=== PATIENT | male | born 1970 | race Two or more races ===

== ENCOUNTER 2019-12-21 11:37 | Emergency (ER) | payer BC, SELFPAY ==
--- NOTE | 2019-12-21 11:33 | ECG_ITS ---
APPROVED REPORT Exam: Resting ECG HR:91 bpm ECG Measurements Heart Rate 91 AXES VA 152 P 72 QRSd 86 QRS 91 QT 382 T 58 QTc 469 <Conclusion> Normal sinus rhythm Rightward axis Borderline ECG Electronically signed by : Gio Harvey, 12/26/2019 13:09:09
[2019-12-21 11:39] VITALS: BP 167/97; PULSE 94; RESP 18; TEMP 36.4; O2SAT 98; BMI 25.7
--- NOTE | 2019-12-21 11:44 | XR_ITS ---
PROCEDURE: XR CHEST 2V CLINICAL HISTORY: chest pain COMPARISON: No exams were available for comparison FINDINGS: The cardiomediastinal silhouette and pulmonary vascularity are within normal limits. The lungs are clear without infiltrates, suspicious nodules, or pleural effusions. No acute bony abnormalities. IMPRESSION: No acute findings. Dictated by: Dr. Hernesto Bonner MD 12/21/2019 13:11 Dr. Hernesto Bonner MD in [place] 12/21/2019 13:11
[2019-12-21 11:53] LABS: Basophils % 0.4 % (0.1-2.0); Eosinophils # 0.1 K/mm3 (0.0-0.4); Eosinophils % 2.2 % (0.1-12.0); Hematocrit 45.4 % (42.0-52.0); Hemoglobin 16.1 g/dL (14.1-18.0); Lymphocytes # 1.6 K/mm3 (0.7-4.5); Lymphocytes % 29.8 % (10-50); Mean Corpuscular HGB Conc 35.5 g/dL (31.8-35.4); Mean Corpuscular Hemoglobin 30.3 pg (27.0-31.2); Mean Corpuscular Volume 85.4 fl (80-94); Mean Platelet Volume 7.3 fl (7.4-10.4); Monocytes # 0.3 K/mm3 (0.1-1.0); Monocytes % 5.3 % (1.7-9.3); Neutrophils # 3.3 K/mm3 (1.8-7.8); Neutrophils % 62.3 % (37.0-80.0); Platelet Count 242 K/mm3 (142-424); Red Blood Count 5.31 M/mm3 (4.60-6.20); Red Cell Distribution Width 13.4 % (11.5-17.5); White Blood Count 5.3 K/mm3 (4.8-10.8)
--- NOTE | 2019-12-21 11:54 | PC.NURSE ---
notified Rad of xray order, spoke with ivett
--- NOTE | 2019-12-21 11:55 | [facility].EDCP ---
ED Disposition Clinical Impression: Anxiety Chest pain Qualifiers: Chest pain type: unspecified Qualified Code(s): R07.9 - Chest pain, unspecified Disposition: Home, Self-Care Condition on Discharge: Good Instructions: DI for Atypical Chest Pain, DI for Anxiety -- Adult Referrals: PCPBrittani [Primary Care Provider] - 12/22/19 - Critical Care Critical Care Time: No Attestation: On , the high probability of a clinically significant, sudden or life threatening deterioration of the following system(s) required my full and direct attention, intervention and personal management. The time I documented below is in addition to time spent performing reported procedures but includes the following listed in this critical care notation. Medical Decision Making - Medical Records Medical records reviewed: Yes: I reviewed the patient's medical records. - Uche Inquiry Pt receiving controlled substance: No Vital Signs: 12/21/19 11:39 Temperature 97.5 F L Temperature Source Oral Pulse Rate [Right Radial] 94 H Respiratory Rate 18 Blood Pressure [Right Arm] 167/97 H Blood Pressure Mean [Right Arm] 120 Blood Pressure Source [Right Arm] Automatic Cuff Blood Pressure Position [Right Arm] Sitting 02 Sat by Pulse Oximetry 98 Oxygen Delivery Method Room Air - Lab Data Lab results reviewed: Yes: I reviewed the patient's lab results. Lab Results 12/21/19 11:40: WBC 5.3, RBC 5.31, Hgb 16.1, Hct 45.4, MCV 85.4, MCH 30.3, MCHC 35.5 H, RDW 13.4, Plt Count 242, MPV 7.3 L, Neut % (Auto) 62.3, Lymph % (Auto) 29.8, Pender % (Auto) 5.3, Eos % (Auto) 2.2, Baso % (Auto) 0.4, Neut # (Auto) 3.3, Lymph # (Auto) 1.6, Pender # (Auto) 0.3, Eos # (Auto) 0.1, Baso # (Auto) 0.0 12/21/19 11:40: Sodium 139, Potassium 3.3 L, Chloride 101, Carbon Dioxide 28, Anion Gap 13.3, BUN 16, Creatinine 1.10, Estimated Creat Clear 107, Estimated GFR 72, Est GFR ( Amer) 87, Glucose 106 H, Calcium 9.1, Total Bilirubin 0.8, AST 31, ALT 37, Alkaline Phosphatase 68, Troponin I < 0.01, Total Protein 7.5, Albumin 4.4, Globulin 3.1, Albumin/Globulin Ratio 1.4 12/21/19 11:40: Lipase 95 Result diagrams: 12/21/19 11:40 12/21/19 11:40 Orders (Tests/Meds): ED MEDICATIONS Generic Name Dose Route Start Last Admin Trade Name Freq PRN Reason Stop Dose Admin Nitroglycerin 0.4 mg 12/21/19 11:44 Nitrostat 0.4mg Sl Tablet SL 12/22/19 11:44 [id number] PRN Chest Pain Discontinued Medications Generic Name Dose Route Start Last Admin Trade Name Freq PRN Reason Stop Dose Admin Aspirin 324 mg 12/21/19 11:44 12/21/19 11:55 Aspirin 81mg Chewable Tablet PO 12/21/19 11:45 324 mg ONCE ONE Administration ORDERS Category Date Time Status XR chest 2V Stat Exams 12/21/19 11:44 Taken Troponin I Q3H Lab 12/21/19 14:45 Ordered Troponin I Q3H Lab 12/21/19 17:45 Ordered ECG Request by /Seth Stat Y 12/21/19 11:44 Ordered - Radiology Data #1 Image(s): Chest Image Reviewed: Yes I reviewed the patient's radiology results Preliminary Findings: Normal/NAD - ECG Data Tracing #1 EKG shows normal sinus rhythm with a rate of 91. Performed at 1133. There is no acute ST segment elevation or depression. No hyperacute T waves. Normal intervals. EKG interpreted by me. - LUANA Score for Non-Stemi Age of Patient: 40-49 years old Heart Rate: 90-109 bpm Systolic Blood Pressure: 160-199 mmHg Serum Creatinine: 0.80-1.19 mg/dl CHF Killip Class: I-No CHF Other Risk Factors: None Non-Stemi Risk Score: 57 Medical Decision Narrative: Patient here with several weeks of intermittent chest pain associated with anxiety. Troponin negative, EKG with no signs of acute ischemia. Low patient for ACS. HEART score less than 3. Chest x-ray with no signs of pneumonia, pneumothorax, widened mediastinum or florid pulmonary edema. PERC negative. He is follow-up with his primary care provider tomorrow for reevaluation. Discharged home. Chest Pain H
[2019-12-21 11:58] LABS: Chloride 101 mmol/L (98-107)
[2019-12-21 11:59] LABS: Potassium 3.3 mmoL/L (3.5-5.1); Sodium 139 mmol/L (136-145)
[2019-12-21 12:01] LABS: Alanine Aminotransferase 37 U/L (12-78); Aspartate Amino Transferase 31 U/L (17-59); Bilirubin,Total 0.8 mg/dl (0.2-1.3); Blood Urea Nitrogen 16 mg/dl (9-20); Creatinine Clearance Estimated 107 mL/min (50-200); Estimated Glomerular Filt Rate 72 ml/min (>60); GFR (African American) 87 ML/MIN (>60); Lipase 95 U/L (23-300)
[2019-12-21 12:02] LABS: Albumin Level 4.4 g/dl (3.5-5.0); Albumin/Globulin Ratio 1.4 (1.1-1.8); Alkaline Phosphatase 68 U/L (38-126); Anion Gap 13.3 mEq/L (5-15); Calcium 9.1 mg/dl (8.4-10.2); Carbon Dioxide 28 mmol/L (22.0-30.0); Globulin 3.1 g/dL (1.3-3.2); Glucose 106 mg/dl (74-100); Total Protein,Serum 7.5 g/dl (6.3-8.2)
--- NOTE | 2019-12-21 12:06 | PC.NURSE ---
pt to xray
[2019-12-21 12:14] LABS: Troponin I < 0.01 ng/ml (0.00-0.034)
[2019-12-21 12:39] VITALS: BP 141/85; PULSE 84; O2SAT 98
[2019-12-21 13:03] VITALS: BP 141/85; PULSE 84; RESP 18; TEMP 36.4; O2SAT 98
== END 2019-12-21 13:05 | disposition home or self-care (01) ==
PROVIDERS: Emergency Provider Emergency Medicine; PCP Internal Medicine
DX: R07.9 Chest pain, unspecified (principal); F41.9 Anxiety disorder, unspecified
CPT/HCPCS: 71046; 80053; 83690; 84484; 85025; 93005; 99284

== ENCOUNTER 2020-01-04 10:05 | Emergency (ER) | payer BC, SELFPAY ==
--- NOTE | 2020-01-04 10:00 | ECG_ITS ---
APPROVED REPORT Exam: Resting ECG HR:71 bpm ECG Measurements Heart Rate 71 AXES GA 160 P 62 QRSd 90 QRS 88 QT 404 T 55 QTc 439 <Conclusion> Normal sinus rhythm Normal ECG Electronically signed by : Gio Harvey, 01/06/2020 15:01:14
[2020-01-04 10:10] VITALS: BP 137/91; PULSE 72; RESP 16; TEMP 37.1; O2SAT 97; BMI 26.9
--- NOTE | 2020-01-04 10:11 | XR_ITS ---
PROCEDURE: XR CHEST 2V CLINICAL HISTORY: chest pain COMPARISON: CR XR CHEST 2V from 12/21/2019 FINDINGS: The cardiomediastinal silhouette and pulmonary vascularity are within normal limits. The lungs are clear without infiltrates, suspicious nodules, or pleural effusions. No acute bony abnormalities. IMPRESSION: No acute findings. Dictated by: Dr. Hernesto Bonner MD 01/04/2020 10:40 Dr. Hernesto Bonner MD in [place] 01/04/2020 10:40
--- NOTE | 2020-01-04 10:12 | [facility].EDCP ---
ED Disposition Clinical Impression: Atypical chest pain, Anxiety Disposition: Home, Self-Care Condition on Discharge: Good Instructions: DI for Atypical Chest Pain Referrals: Fermin Meyers PA [Physician Item Processor] - 7-14 days - Critical Care Critical Care Time: No Attestation: On 01/04/20, the high probability of a clinically significant, sudden or life threatening deterioration of the following system(s) required my full and direct attention, intervention and personal management. The time I documented below is in addition to time spent performing reported procedures but includes the following listed in this critical care notation. Medical Decision Making - Medical Records Medical records reviewed: Yes: I reviewed the patient's medical records. - [place] Inquiry Pt receiving controlled substance: No Vital Signs: 01/04/20 10:10 01/04/20 10:30 Temperature 98.8 F Temperature Source Oral Pulse Rate [Right Brachial] 72 66 Respiratory Rate 16 Blood Pressure [Right Arm] 137/91 H 128/82 Blood Pressure Mean [Right Arm] 106 97 Blood Pressure Source [Right Arm] Automatic Cuff Automatic Cuff Blood Pressure Position [Right Arm] Supine Sitting 02 Sat by Pulse Oximetry 97 98 Oxygen Delivery Method Room Air Room Air - Lab Data Lab Results 01/04/20 10:00: WBC 6.1, RBC 5.32, Hgb 15.9, Hct 45.0, MCV 84.5, MCH 29.9, MCHC 35.4, RDW 13.6, Plt Count 242, MPV 7.4, Neut % (Auto) 67.1, Lymph % (Auto) 26.1, Gonzales % (Auto) 4.5, Eos % (Auto) 1.8, Baso % (Auto) 0.5, Neut # (Auto) 4.1, Lymph # (Auto) 1.6, Gonzales # (Auto) 0.3, Eos # (Auto) 0.1, Baso # (Auto) 0.0 01/04/20 10:00: Sodium 140, Potassium 3.6, Chloride 101, Carbon Dioxide 31 H, Anion Gap 11.6, BUN 16, Creatinine 1.10, Estimated Creat Clear 112, Estimated GFR 72, Est GFR ( Amer) 87, Glucose 88, Calcium 9.3, Total Bilirubin 0.9, AST 32, ALT 33, Alkaline Phosphatase 58, Troponin I < 0.01, Total Protein 7.5, Albumin 4.4, Globulin 3.1, Albumin/Globulin Ratio 1.4, Lipase 134 Result diagrams: 01/04/20 10:00 01/04/20 10:00 Orders (Tests/Meds): ORDERS Category Date Time Status Troponin I Q3H Lab 01/04/20 13:15 Ordered Troponin I Q3H Lab 01/04/20 16:15 Ordered - Radiology Data #1 Image(s): Chest Image Reviewed: Yes I reviewed the patient's radiology results Preliminary Findings: Normal/NAD - ECG Data Tracing #1 EKG performed at 1000 shows normal sinus rhythm with a rate of 71. No acute ST segment elevation or depression. No hyperacute T waves. Normal intervals. EKG interpreted by me. Additional Comments: Patient here with chest pain that he has had for at least a month every morning and an episode of sweating, diaphoresis that occurred while in a meeting today. This has happened to him before and he has been told that he has anxiety. He does not currently have any chest pain. His chest pain this morning was typical for him as it has been over the last month since he has been more concerned about it. Patient states that he has been taking his medications as prescribed and has follow-up with cardiology next week. I was able to speak with cardiology and confirmed that a single troponin would be appropriate given his longstanding history of similar symptoms and they agreed. His troponin here is negative and his EKG shows no signs of acute ischemia. Chest x-ray with no signs of pneumonia, pneumothorax or florid pulmonary edema. Advise follow-up next week with cardiology as planned and return for any worsening or change in symptomology. Chest Pain HPI - General Stated Complaint: chest pain Time Seen by Provider: 01/04/20 10:12 Mode of Arrival: Ambulatory Source of Information: Patient Limitations: No Limitations - History of Present Illness HPI narrative: This is a 49-year-old male with a past medical history significant for anxiety, hypertension, hyperlipidemia who presents to the emergency department for evaluation of anterior chest shante
[2020-01-04 10:21] LABS: Basophils % 0.5 % (0.1-2.0); Eosinophils # 0.1 K/mm3 (0.0-0.4); Eosinophils % 1.8 % (0.1-12.0); Hemoglobin 15.9 g/dL (14.1-18.0); Lymphocytes # 1.6 K/mm3 (0.7-4.5); Lymphocytes % 26.1 % (10-50); Mean Corpuscular HGB Conc 35.4 g/dL (31.8-35.4); Mean Corpuscular Hemoglobin 29.9 pg (27.0-31.2); Mean Corpuscular Volume 84.5 fl (80-94); Mean Platelet Volume 7.4 fl (7.4-10.4); Monocytes # 0.3 K/mm3 (0.1-1.0); Monocytes % 4.5 % (1.7-9.3); Neutrophils # 4.1 K/mm3 (1.8-7.8); Neutrophils % 67.1 % (37.0-80.0); Platelet Count 242 K/mm3 (142-424); Red Blood Count 5.32 M/mm3 (4.60-6.20); Red Cell Distribution Width 13.6 % (11.5-17.5); White Blood Count 6.1 K/mm3 (4.8-10.8)
--- NOTE | 2020-01-04 10:22 | PC.NURSE ---
Pt to rad at this time.
[2020-01-04 10:24] LABS: Chloride 101 mmol/L (98-107); Potassium 3.6 mmoL/L (3.5-5.1); Sodium 140 mmol/L (136-145)
[2020-01-04 10:27] LABS: Alanine Aminotransferase 33 U/L (12-78); Alkaline Phosphatase 58 U/L (38-126); Anion Gap 11.6 mEq/L (5-15); Aspartate Amino Transferase 32 U/L (17-59); Bilirubin,Total 0.9 mg/dl (0.2-1.3); Blood Urea Nitrogen 16 mg/dl (9-20); Calcium 9.3 mg/dl (8.4-10.2); Carbon Dioxide 31 mmol/L (22.0-30.0); Creatinine Clearance Estimated 112 mL/min (50-200); Estimated Glomerular Filt Rate 72 ml/min (>60); GFR (African American) 87 ML/MIN (>60); Glucose 88 mg/dl (74-100); Lipase 134 U/L (23-300)
[2020-01-04 10:28] LABS: Albumin Level 4.4 g/dl (3.5-5.0); Albumin/Globulin Ratio 1.4 (1.1-1.8); Globulin 3.1 g/dL (1.3-3.2); Total Protein,Serum 7.5 g/dl (6.3-8.2)
--- NOTE | 2020-01-04 10:29 | PC.NURSE ---
Pt returned from rad.
[2020-01-04 10:30] VITALS: BP 128/82; PULSE 66; O2SAT 98
--- NOTE | 2020-01-04 10:33 | PC.NURSE ---
dr briggs speaking with Fermin Meyers at this time.
[2020-01-04 10:42] LABS: Troponin I < 0.01 ng/ml (0.00-0.034)
[2020-01-04 10:44] VITALS: BP 123/82; PULSE 65; O2SAT 100
[2020-01-04 10:54] VITALS: BP 123/82; PULSE 74; RESP 16; TEMP 37; O2SAT 98
== END 2020-01-04 11:05 | disposition home or self-care (01) ==
PROVIDERS: Emergency Provider Emergency Medicine; PCP Internal Medicine
DX: R07.89 Other chest pain (principal); F41.0 Panic disorder [episodic paroxysmal anxiety]; I10 Essential (primary) hypertension; E78.5 Hyperlipidemia, unspecified; Z79.899 Other long term (current) drug therapy
CPT/HCPCS: 71046; 80053; 83690; 84484; 85025; 93005; 99282